=== PATIENT | female | born 1965 | race Caucasian/White ===

== ENCOUNTER 2020-02-15 10:14 | Outpatient (REF) | payer OTHER, SELFPAY ==
[2020-02-15 10:37] LABS: COVID-19 Test Negative (Negative)
== END 2020-02-15 10:15 | disposition home or self-care (01) ==
LOC: HO.LAB 10:14
PROVIDERS: Visit Provider Internal Medicine
DX: Z20.828 Contact with and (suspected) exposure to other viral communicable diseases (principal)
CPT/HCPCS: 87635; C9803

== ENCOUNTER 2020-06-20 | Outpatient (REF) | payer OTHER, SELFPAY ==
--- NOTE | ~2020-06-20 | XR_ITS ---
EXAMINATION: BILATERAL HAND SERIES CLINICAL INFORMATION: Pain in the right hand COMPARISON: None TECHNIQUE: 3 views of the right hand and 3 views of the left hand FINDINGS: Right hand: First carpometacarpal joint Well-corticated rounded ossific density radial to the first carpometacarpal joint. Possible small marginal osteophytes. Remaining bones joints and soft tissues normal. No erosions. No joint space narrowing. Left hand: Bones joints and soft tissues normal. No erosions or joint space narrowing. XR/XR hand LT min 3V IMPRESSION: Right hand: Possible mild arthrosis of the first carpometacarpal joint. Left hand: Normal.
--- NOTE | ~2020-06-20 | XR_ITS ---
EXAMINATION: BILATERAL HAND SERIES CLINICAL INFORMATION: Pain in the right hand COMPARISON: None TECHNIQUE: 3 views of the right hand and 3 views of the left hand FINDINGS: Right hand: First carpometacarpal joint Well-corticated rounded ossific density radial to the first carpometacarpal joint. Possible small marginal osteophytes. Remaining bones joints and soft tissues normal. No erosions. No joint space narrowing. Left hand: Bones joints and soft tissues normal. No erosions or joint space narrowing. XR/XR hand RT min 3V IMPRESSION: Right hand: Possible mild arthrosis of the first carpometacarpal joint. Left hand: Normal.
== END 2020-06-20 00:01 | disposition home or self-care (01) ==
LOC: HO.XRAY
PROVIDERS: Visit Provider Student in an Organized Health Care Education/Training Program
DX: M79.642 Pain in left hand (principal); M79.641 Pain in right hand
CPT/HCPCS: 73130

== ENCOUNTER → 2020-06-20 10:02 | Outpatient (BNVA) | payer OTHER, SELFPAY | PROVIDERS: PCP Family Medicine; Visit Provider Student in an Organized Health Care Education/Training Program ==

== ENCOUNTER 2022-12-10 09:30 | Emergency (ER) | payer OTHER, SELFPAY ==
--- NOTE | 2022-12-10 | ECG_ITS ---
Test Reason : abd pain Blood Pressure : / mmHG Vent. Rate : 078 BPM Atrial Rate : 078 BPM P-R Int : 126 ms QRS Dur : 088 ms QT Int : 380 ms P-R-T Axes : -03 048 026 degrees QTc Int : 433 ms Normal sinus rhythm with sinus arrhythmia Normal ECG No previous ECGs available Referred By: Generic ED Physician Electronically Signed By:MARLEN CHARLES
--- NOTE | ~2022-12-10 | CT_ITS ---
EXAMINATION: CT ABDOMEN AND PELVIS WITH CONTRAST CLINICAL INFORMATION: Severe abdominal pain and vomiting. COMPARISON: None available. TECHNIQUE: Multidetector volumetric images were obtained from the superior aspect of the liver through the pubic symphysis following administration 85 mL of Omnipaque 350 intravenous contrast. Sagittal and coronal reformatted images were obtained on the technologist's workstation. Oral contrast: No This CT examination was performed using dose optimization techniques as appropriate, variously including the following: *Automated exposure control *Adjustment of mA and/or kV according to patient size (this includes techniques or standardized protocols for targeted exams where dose is matched to indication/reason for exam; i.e. extremities or head) *Use of iterative reconstruction technique DLP: 925 mGy-cm FINDINGS: LUNG BASES: The visualized lung bases are unremarkable. LIVER, GALLBLADDER, AND BILIARY TREE: Unremarkable. PANCREAS: Unremarkable. SPLEEN: Unremarkable. ADRENAL GLANDS: Unremarkable. KIDNEYS AND URETERS: The left kidney shows a noncalcified fluid attenuation cysts. The largest cyst is in the left lower pole peripelvic measuring 2.5 cm (image 59, series 5). No nephrolithiasis or hydroureteronephrosis. BLADDER: Unremarkable. GASTROINTESTINAL TRACT: The stomach and proximal small bowel is unremarkable. Moderate abnormal mural thickening is seen in the distal ileum extending to the terminal ileum and ileocecal valve a length of approximately 4 cm. Adjacent infiltrative changes are seen in the mesentery. No associated obstruction, perforation or abscess formation. The appendix is unremarkable except for a coarse calcification near the tip measuring 0.8 cm. The colon and rectum are unremarkable. PERITONEUM: Mild ascites. ABDOMINAL WALL: No significant hernia is appreciated. LYMPH NODES: No lymphadenopathy. VASCULAR: Unremarkable. PELVIC VISCERA: Unremarkable. OSSEOUS STRUCTURES: L5-S1 severe degenerative disc disease, grade 1 anterolisthesis and bilateral spondylolysis. No acute/suspicious abnormality. CT/CT abdomen pelvis w IV con IMPRESSION: 1. Moderate abnormal mural thickening in the distal ileum extending to the terminal ileum and ileocecal valve. Adjacent infiltrative changes are seen in the mesentery. No associated obstruction, perforation or abscess formation. This is most consistent with an infectious/inflammatory ileitis. 2. Mild ascites likely reactive to the distal small bowel findings. 3. Left renal cysts demonstrate benign features not requiring follow-up. 4. L5-S1 severe degenerative disc disease, grade 1 anterolisthesis and bilateral spondylolysis.
[2022-12-10 09:35] VITALS: BP 135/86; BP 142/90; PULSE 83; PULSE 85; RESP 18; TEMP 36.9; O2SAT 98; BMI 37.8
[2022-12-10 09:42] VITALS: PULSE 86
--- NOTE | 2022-12-10 09:48 | ED_ITS ---
HPI - Abdominal Pain General Chief Complaint: Abdominal Pain Stated Complaint: ABD PAIN Time Seen by Provider: 12/10/22 09:47 Source: patient and EMS Mode of arrival: EMS Limitations: no limitations History of Present Illness HPI narrative: 57 yo female with no significant medical history, alcohol use, who presents to the ER for evaluation of diffuse abdominal pains for the last 4 days. She reports the pain comes in waves and is cramping in nature. It tends to be worse at night and she has had trouble sleeping the last few nights. She has been having normal BMs. Today she vomited the small amount of water she drank. She is afraid to eat and drink but did not notice increased pain wtih food. No known sick contacts. No fever, chills, urinary symptoms, chest pain or SOB. MD elicited complaint: abdominal pain Pertinent past history: none Onset (ago): day(s) (4) Pain Consistency: intermittent Location: diffuse Severity: moderate Quality: cramping Exacerbating factors: nothing Relieving factors: nothing Associated symptoms: nausea and vomiting Related Data Previous Rx's Medication Instructions Recorded diclofenac sodium 1 % topical gel 2 g topical QID #100 grams 06/20/20 (Voltaren) amoxicillin 875 mg-potassium 1 tab PO BID #14 tabs 12/10/22 clavulanate 125 mg tablet dicyclomine 20 mg tablet 20 mg PO BID PRN abdominal pain 12/10/22 #14 tabs ondansetron 4 mg disintegrating 4 mg PO Q8H PRN nausea and 12/10/22 tablet vomiting #10 tabs Allergies Allergy/AdvReac Type Severity Reaction Status Date / Time animals Allergy Intermediate dander Uncoded 12/10/22 09:41 Review of Systems Review of Systems Yes all other systems are reviewed and are negative [facility] Past Medical History Medical History (Updated 12/10/22 @ 13:02 by DALI Rodriguez) Denial No active medical problems Surgical History (Updated 06/20/20 @ 10:27 by Arturo Parker MD) No pertinent past surgical history Family History Family History (Updated 06/20/20 @ 10:10 by Danielle Ko CMA) Mother CVD (cardiovascular disease) Daughter Diabetes Father MVA (motor vehicle accident) Social History Social History (Updated 06/20/20 @ 10:27 by Arturo Parker MD) Alcohol intake: current Alcohol intake frequency: a few times a month Smoked in Last 30 Days: No Use of substances other than those prescribed or required for medical reasons: No Advance Directives: No Advance Directives Information Provided: Yes Current occupational status: employed Physical Exam ED Vital Signs: Vital Signs - 24 hr 12/10/22 09:35 12/10/22 09:42 12/10/22 10:42 Temperature 98.4 F 98.2 F Pulse Rate 83 86 73 Respiratory Rate 18 15 Blood Pressure 135/86 109/56 L Pulse Oximetry 98 92 Oxygen Delivery Method Room Air Room Air BMI result Body Mass Index 37.8 Appearance: Alert. Oriented X3. No acute distress. Head: normocephalic, atraumatic. Eyes: Pupils equal, round and reactive to light. ENT: Pharynx normal. No tonsillar swelling or exudate. Neck: Normal inspection. Neck supple. CVS: Normal heart rate and rhythm. Pulses normal. Respiratory: No respiratory distress. Breath sounds normal. Abdomen: Obese, Soft with mild-moderate diffuse tenderness, normal active +BS x4 Skin: Skin warm and dry. Normal skin color. Normal skin turgor. No rashes. Extremities: No lower extremity edema. No joint swelling. Neuro/psych: Oriented X 3. No motor deficit. No sensory deficit. CN II-XII intact. Normal speech and cognition. Medical Decision Making Medical Decision Making [facility] Narrative: 57 yo female presenting with diffuse abdominal pain for the last 4 days, comes in waves. Tender on exam. VS are stable. Labs showing leukocytosis w/ WBC 15.1, also polycythemic vs hemoconcentrate w/ H/H 17/50. LFTs and other labs are normal. CT scan reviewed - showing ileitis. no diarrhea. will plan to start augmentin, bentyl for pain and zofran. she was tolerating PO in the ER comfortable w/ discharge home importance of GI follow up discussed as well as return precautions. stable for d/c. Differential Diagnosis Differential Diagnoses: The differential diagnosis associated with the presentation includes colitis, diverticulitis, acute cholecystitis, appendicitis, gastritis, gastroenteritis, pancreatitis, dehydration, electrolyte abnormality Admission/Observation Consideration of admission/observation: Escalation of care including admission/observation considered abd pain w/ leukocytosis. considered admit. pain and symptoms improved w/ meds. comfortable d/c home Lab Data [facility] Lab Attestation statement: I reviewed the patient's lab results. 12/10/22 10:06 12/10/22 10:06 Labs: Lab Results 12/10/22 12/10/22 12/10/22 Range/Units 10:06 10:06 11:44 WBC 15.1 H (4.8-10.8) X10*3/uL RBC 5.52 H (4.20-5.50) X10*6/uL Hgb 17.3 H (12.0-16.0) g/dl Hct 50.7 H (37.0-47.0) % MCV 91.8 (80.0-98.0) fL MCH 31.3 (27.0-33.0) pg MCHC 34.1 (31.0-35.0) g/dl RDW 12.1 (11.0-16.0) % Plt Count 266 (160-400) X10*3/uL MPV 9.7 (9.4-12.3) fL Immature Gran % (Auto) 0.5 H (0.0-0.4) % Neut % (Auto) 88.4 H (45-73) % Lymph % (Auto) 5.5 L (20-40) % [place] % (Auto) 4.7 (2-11) % Eos % (Auto) 0.5 (0-4) % Baso % (Auto) 0.4 (0-2) % Lymph # (Auto) 0.8 L (1.2-4.9) X10*3/uL [place] # (Auto) 0.7 (0.1-1.2) X10*3/uL Eos # (Auto) 0.1 (0.0-0.4) X10*3/uL Baso # (Auto) 0.1 (0.0-0.2) X10*3/uL Abs Immat Gran (auto) 0.07 H (0.00-0.03) X10*3/uL Absolute Neuts (auto) 13.4 H (2.0-8.3) x10*3/uL Absolute Nucleated RBC 0.000 (0.0-0.012) X10*3/uL Nucleated RBC % (auto) 0.0 (0.0-0.2) /100WBC Sodium 138 (135-145) mmol/L Potassium 4.3 (3.3-5.1) mmol/L Chloride 103 (96-108) mmol/L Carbon Dioxide 26 (22-29) mmol/L Anion Gap 13 (12-20) BUN 14 (9-16) mg/dL Creatinine 0.81 (0.5-1.4) mg/dL Estim Creat Clear Calc 95.5 Estimated GFR > 60 Random Glucose 127 H (60-115) mg/dL Calcium 10.0 (8.4-10.2) mg/dL Magnesium 2.1 (1.6-2.6) mg/dL Total Bilirubin 0.7 (0.0-1.0) mg/dL Direct Bilirubin 0.3 (0.0-0.5) mg/dL AST 15 (5-31) U/L ALT 20 (0-31) U/L Alkaline Phosphatase 78 (39-117) U/L Total Protein 7.3 (6.5-8.0) g/dL Albumin 4.1 (3.5-5.0) g/dL Lipase 11 (8-78) U/L Urine Color Yellow Urine Appearance Clear Urine pH 5.5 (5.0-9.0) Ur Specific [place] >= 1.030 H (1.005-1.025) Urine Protein Negative (Neg-Trace) mg/dL Urine Glucose (UA) Negative (Negative) mg/dL Urine Ketones 15 (Negative) mg/dL Urine Blood Negative (Negative) Urine Nitrite Negative (Negative) Ur Leukocyte Esterase Negative (Negative) Independent Interpretation I performed an independent interpretation of an: CT Scan Interpretation: no air fluid levels to suggest obstruction, inflammation in small bowel seen, agree w/ radiology read Radiology Impression Discussion of test interpretation with radiology: I have reviewed the radiologist's reading. Radiologist Impression: EXAMINATION: CT ABDOMEN AND PELVIS WITH CONTRAST? CLINICAL INFORMATION: Severe abdominal pain and vomiting.? COMPARISON: None available. FINDINGS: LUNG BASES: The visualized lung bases are unremarkable.? LIVER, GALLBLADDER, AND BILIARY TREE: Unremarkable. PANCREAS: Unremarkable.? SPLEEN: Unremarkable.? ADRENAL GLANDS: Unremarkable.? KIDNEYS AND URETERS: The left kidney shows a noncalcified fluid attenuation cysts. The largest cyst is in the left lower pole peripelvic measuring 2.5 cm (image 59, series 5). No nephrolithiasis or hydroureteronephrosis. BLADDER: Unremarkable.? GASTROINTESTINAL TRACT: The stomach and proximal small bowel is unremarkable. Moderate abnormal mural thickening is seen in the distal ileum extending to the terminal ileum and ileocecal valve a length of approximately 4 cm. Adjacent infiltrative changes are seen in the mesentery. No associated obstruction, perforation or abscess formation. The appendix is unremarkable except for a coarse calcification near the tip measuring 0.8 cm. The colon and rectum are unremarkable. PERITONEUM: Mild ascites. ABDOMINAL WALL: No significant hernia is appreciated.? LYMPH NODES: No lymphadenopathy. VASCULAR: Unremarkable. PELVIC VISCERA: Unremarkable.? OSSEOUS STRUCTURES: L5-S1 severe degenerative disc disease, grade 1 anterolisthesis and bilateral spondylolysis. No acute/suspicious abnormality.? CT/CT abdomen pelvis w IV con IMPRESSION: 1.? Moderate abnormal mural thickening in the distal ileum extending to the terminal ileum and ileocecal valve. Adjacent infiltrative changes are seen in the mesentery. No associated obstruction, perforation or abscess formation. This is most consistent with an infectious/inflammatory ileitis. 2.? Mild ascites likely reactive to the distal small bowel findings. 3.? Left renal cysts demonstrate benign features not requiring follow-up. 4.? L5-S1 severe degenerative disc disease, grade 1 anterolisthesis and bilateral spondylolysis. Independent Historian Clinical information obtained from an independent historian. History obtained from or confirmed by: EMS Prescription Management I considered prescription management with: Pain Medication and Antibiotic Social Determinants Patient?s care significantly limited by Social Determinants of Health including: Other Social Determinant of Health (no PCP, no medical follow up) Medications Administered Discontinued Medications Generic Name Dose Route Start Last Admin Trade Name Freq PRN Reason Stop Dose Admin Sodium Chloride 1,000 mls @ 999 mls/hr 12/10/22 10:00 12/10/22 11:38 Ns IVCONT 12/10/22 11:00 Infused .Q1H1M KINGS Infusion Sodium Chloride 1,000 mls @ 999 mls/hr 12/10/22 11:00 12/10/22 13:15 Ns IVCONT 12/10/22 12:00 Infused .Q1H1M KINGS Infusion Iohexol 100 ml 12/10/22 11:33 12/10/22 11:33 Iohexol 350 Mg/Ml 100 Ml Infus..Btl IV 12/10/22 11:34 85 ml ONCE ONE Administration Morphine Sulfate 4 mg 12/10/22 09:52 12/10/22 10:00 Morphine Sulfate 4 Mg/Ml Cartridge IVPUSH 12/10/22 09:53 4 mg ONCE ONE Administration Protocol Ondansetron HCl 4 mg 12/10/22 09:52 12/10/22 10:00 Ondansetron Hcl 4 Mg/2 Ml Vial IVPUSH 12/10/22 09:53 4 mg ONCE ONE Administration Critical Care Time Critical Care Time Critical Care Time: No Discharge Plan Discharge Clinical Impression: Ileitis Patient Disposition: Home, Self-Care Instructions: Enteritis (ED) Additional Instructions: Your CT scan today showed inflammation in a part of your small bowel. Take the prescribed antibiotics as directed, complete the entire course and do not miss any doses Stick to a bland diet while you are not feeling well Make sure you are drinking plenty of fluids Recommend following up with GI for further evaluation and treatment - name and number below, call for an appointment If you develop new or worsening symptoms call 911 or come back to the ER for further evaluation. Prescriptions: New amoxicillin-pot clavulanate 875-125 mg tablet 1 tab PO BID Qty: 14 0RF ondansetron 4 mg tablet,disintegrating 4 mg PO Q8H PRN (Reason: nausea and vomiting) Qty: 10 0RF dicyclomine 20 mg tablet 20 mg PO BID PRN (Reason: abdominal pain) Qty: 14 0RF No Action diclofenac sodium [Voltaren] 1 % gel 2 g topical QID Qty: 100 3RF Rx Instructions: Apply 1 g to bilateral CMC joints twice daily as needed. Referrals: [facility] [place] [facility] [Provider Group] (ileitis)
--- NOTE | 2022-12-10 09:49 | PC.NURSE ---
pt a&ox3. respirations even and unlabored. pt abdomen soft but tender to touch in all 4 quadrants. pt reports abdominal pain since Wednesday that is constant. pt reports nausea since Wednesday. denies chest pain and diarrhea. pt reports vomiting prior to coming to the ED. pt reports being unable to eat full meals. EMS placed a 20 in the right AC. normal sinus on tele.
[2022-12-10] MEDS: Morphine Sulfate 4 MG/ML CARTRIDGE IVPUSH (10:00)
[2022-12-10] MEDS: ondansetron HCL 4 MG/2 ML VIAL IVPUSH (10:00)
[2022-12-10] MEDS: 0.9 % Sodium Chloride 1,000 ML 999 ML IVCONT ×2 (10:01→11:43)
[2022-12-10 10:14] LABS: Basophils Absolute Auto 0.1 X10*3/uL (0.0-0.2); Basophils Percent Auto 0.4 % (0-2); Eosinophils Absolute Auto 0.1 X10*3/uL (0.0-0.4); Eosinophils Percent Auto 0.5 % (0-4); Hematocrit 50.7 % (37.0-47.0); Hemoglobin 17.3 g/dl (12.0-16.0); Imm Gran Abs Auto 0.07 X10*3/uL (0.00-0.03); Imm Gran Pct Auto 0.5 % (0.0-0.4); Lymphocytes Absolute Auto 0.8 X10*3/uL (1.2-4.9); Lymphocytes Percent Auto 5.5 % (20-40); MANUAL DIFF FLAG NO; Mean Corpuscular HGB Conc 34.1 g/dl (31.0-35.0); Mean Corpuscular Hemoglobin 31.3 pg (27.0-33.0); Mean Corpuscular Volume 91.8 fL (80.0-98.0); Mean Platelet Volume 9.7 fL (9.4-12.3); Monocytes Absolute Auto 0.7 X10*3/uL (0.1-1.2); Monocytes Percent Auto 4.7 % (2-11); Neutrophils Absolute Auto 13.4 x10*3/uL (2.0-8.3); Neutrophils Percent Auto 88.4 % (45-73); Platelet Count 266 X10*3/uL (160-400); Red Blood Count 5.52 X10*6/uL (4.20-5.50); Red Cell Distribution Width 12.1 % (11.0-16.0); White Blood Count 15.1 X10*3/uL (4.8-10.8)
--- NOTE | 2022-12-10 10:40 | PC.NURSE ---
pt right ac line infiltrated. pt reports no pain at site. line discontinued. 20 placed in left forearm.
[2022-12-10 10:42] VITALS: BP 109/56; PULSE 73; RESP 15; TEMP 36.8; O2SAT 92
[2022-12-10 10:44] LABS: Alanine Aminotransferase 20 U/L (0-31); Albumin Level 4.1 g/dL (3.5-5.0); Alkaline Phosphatase 78 U/L (39-117); Anion Gap 13 (12-20); Aspartate Amino Transferase 15 U/L (5-31); Bilirubin Direct 0.3 mg/dL (0.0-0.5); Bilirubin Total 0.7 mg/dL (0.0-1.0); Blood Urea Nitrogen 14 mg/dL (9-16); Carbon Dioxide 26 mmol/L (22-29); Chloride 103 mmol/L (96-108); Creatinine Clr Calc Pharmacy 95.5; Estimated Glomerular Filt Rate > 60; Glucose Random 127 mg/dL (60-115); Lipase 11 U/L (8-78); Magnesium 2.1 mg/dL (1.6-2.6); Potassium 4.3 mmol/L (3.3-5.1); Sodium 138 mmol/L (135-145); Total Protein 7.3 g/dL (6.5-8.0)
[2022-12-10] MEDS: iohexoL 350 MG/ML 100 ML INFUS..BTL IV (11:33)
[2022-12-10 11:55] LABS: Appearance Urine Clear; Color Urine Yellow; Glucose Urine UA Negative (Negative); Leukocyte Esterase Urine Negative (Negative); Nitrite Urine Negative (Negative); PH 5.5 (5.0-9.0); Specific Gravity - Urine >= 1.030 (1.005-1.025); Urine Blood Negative (Negative); Urine Ketones 15 mg/dL (Negative); Urine Protein Negative (Neg-Trace)
== END 2022-12-10 14:19 | disposition home or self-care (01) ==
PROVIDERS: Physician Assistant; Emergency Provider Emergency Medicine
DX: K52.9 Noninfective gastroenteritis and colitis, unspecified (principal); R10.9 Unspecified abdominal pain
CPT/HCPCS: 36415; 74177; 80048; 80076; 81003; 83690; 83735; 85025; 93005; 96361; 96374; 96375; 99284; 99285; J2270; J2405; Q9967

== ENCOUNTER 2022-12-18 16:04 | Outpatient (REF) | payer OTHER, SELFPAY ==
[2022-12-18 17:40] LABS: Appearance Urine Clear; Color Urine Yellow; Glucose Urine UA Negative (Negative); Leukocyte Esterase Urine Negative (Negative); Nitrite Urine Negative (Negative); PH 5.5 (5.0-9.0); Specific Gravity - Urine 1.015 (1.005-1.025); Urine Blood Negative (Negative); Urine Ketones Negative (Negative); Urine Protein Negative (Neg-Trace)
== END 2022-12-18 16:05 | disposition home or self-care (01) ==
LOC: HO.LAB 16:04
PROVIDERS: Visit Provider Surgery
DX: K52.9 Noninfective gastroenteritis and colitis, unspecified (principal)
CPT/HCPCS: 81003

== ENCOUNTER 2024-08-30 13:02 | Outpatient (AMB) | payer OTHER, SELFPAY ==
--- NOTE | 2024-08-30 13:13 | MHC.PC.OV ---
Vital Signs 08/30/24 13:19 Height 5 ft 5 in Weight 236 lb 6 oz BMI 39.3 BP 134/76 Blood Pressure Location Lt brachial Position Sitting Respiration 12 Pulse 76 Pulse Source Pulse Oximeter Temp 97.2 F Temp Source Oral Pulse Oximetry (%) 97 Oxygen Delivery Method Room Air Intake Visit Reasons: est care Intake Note: New patient to establish care Die Engraver Required: No Allergies animals Allergy (Intermediate, Uncoded 08/30/24 13:30) dander Medication List - Last Reconciled 08/30/24 by ALTA Trimble No Known Home Meds Tobacco use date assessed: 08/30/24 Dental Screening Dental Screen Date: 08/30/24 Did you have a dental visit in the last 12 months?: No Did you have a dental problem in the last 6 months where you did not have access to dental care?: No Was dental information given to patient?: No HPI HPI Comments History of Present Illness Details 59 y/o F with left kidney shows a noncalcified fluid attenuation cysts. 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 Ordered today Pap last one done several years ago, hx of abnormal Specialists Rheum - no longer follows Derm History of Present Illness - The patient is a 59-year-old female presenting to establish care. & for CPE - Infectious and inflammatory ileitis occurred in 2022, identified as viral. - Left kidney cysts are noncalcified, fluid-filled, and benign. No further fu required. - Chronic lumbar degenerative disc disease reported, severe at L5 and S1. Offers no complaints, - Obesity noted with a BMI of 39. Family History - No family history of colon cancer in first-degree relatives. - Daughter has melanoma, now on chemotherapy. - Daughter with type 1 diabetes experienced organ failure from flu strand B. - No personal or family history of Crohn's disease or ulcerative colitis. 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 - Has three daughters, one with melanoma, one with type 1 diabetes, and one healthy. - Reports reluctance towards medical visits due to familiarity with medical personnel and previous medical experiences. - Describes self as previously a 'sun goddess' with frequent sun exposure. Health Maintenance - Cologuard screening planned, patient previously received but did not complete. - Last mammogram completed in 2019 with a recommendation for possible update. - No history of colonoscopy, discussed potential eligibility for Cologuard test. - No history of bone density screening; discussed as potential concurrent test with mammogram. - Tetanus vaccination was last administered in 2018. Review of Systems - Constitutional: Denies current medication use. -Optho: Patient reports chronic bloodshot eye L side, with loose skin, affecting L Upper lid, causing irritation. - Ears: Patient reports boyfriend thinks hearing is declining due to preference for louder TV volume. - Gastrointestinal: Reports previous iliitis, benign kidney cysts. - Neuromusculoskeletal: Denies sciatica currently, reports arthritis in thumbs. - Dermatological: No current concerns, but significant sun exposure history. - Gynecological: Menopause began approximately 5 years ago. Last Pap smear approximately 20 years ago with history of precancerous changes treated surgically. - Psychosocial: Reports potential hearing concerns according to partner. Physical Exam General: Well developed, well nourished, in no acute distress. Appears stated age. Head: Normocephalic, atraumatic. Eyes: Pupils are equal, round and reactive to light and accommodation. Conjunctivae are clear. Vision grossly normal. Ears: TMs clear AU, EACS WNL. Nose: Patent, without discharge. Neck: Supple, no adenopathy or thyromegaly. No pain or tenderness noted. Breast: Edu on SBE. Last mammogram in 2019. Lungs: Clear to auscultation bilaterally. No rales, rhonchi or wheeze noted. Good air flow in all dobbins. Heart: Regular rate and rhythm. No murmurs, click, rubs or gallops are noted. Abdomen: Bowel sounds present in all quadrants. The abdomen is soft, nontender, with no masses or organomegaly noted. No hernias are noted. : Deferred. 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 Pulses: Peripheral pulses are equal and palpable bilaterally. Extremities: No clubbing, cyanosis nor edema is noted. Neurologic: Gait and station normal. Cranial Nerves 2-12 intact. Motor strength grossly symmetrical and intact. No sensory loss. Balance normal. Skin: No rashes, ulcers, or lesions noted. Turgor is good. Skin color is good. Hair and nails are without abnormalities. Psych: Normal eye contact, affect and mood appropriate, and normal interactions. Patient is alert and appropriate to context. Discussion Notes I discussed with the patient the importance of health maintenance, including mammogram and colon cancer screenings. We covered the Cologuard test as a noninvasive option, highlighting results' validity for three years. I encouraged routine bone density scanning given menopausal status and advised checking familial melanoma risk with dermatology. The patient is informed of her option to undergo these tests within the next year. I reviewed the details of potential screenings, outlining processing and follow-up procedures while addressing concerns about invasive testing. Consent was documented for Cologuard involvement. Assessment and Plan 1. Infectious and inflammatory ileitis - Viral, resolved; no current treatment. 2. Noncalcified fluid attenuation cysts in the left kidney - Benign; no further imaging needed. 3. Severe degenerative disc disease at L5 and S1 - Conservative management, no complaints. 4. Obesity - Advised diet and weight loss. 5. Health Maintenance - Screenings recommended: Cologuard, mammogram, bone density. Refer to Derm and WATER SOFTENER SERVICER AND INSTALLER Patient Instructions - Review and discuss results from Cologuard test once received. - Schedule a mammogram within the next year. - Consider lifestyle changes to address weight management. - Consult w/ Derm and WATER SOFTENER SERVICER AND INSTALLER - Follow guidelines for routine health maintenance. - Routine labs - RTO 1 year CPE, sooner PRN Consent Patient was informed and verbally consented to the use of an ambient scribe for clinic note documentation during this visit. An additional 18 minutes was spent addressing the problem(s) noted at todays visit. This includes time spent before the visit reviewing the chart, time spent during the visit, and time spent after the visit on documentation reviewing laboratory results, diagnostic imaging, medications, performing a medically necessary evaluation, counseling on diagnoses, care coordination, ordering appropriate tests, ordering appropriate medications, review of tests performed by other providers, reporting test results with the patient, communication with other healthcare providers. [facility] Medical History (Updated 08/30/24 @ 14:16 by Misti Gtz, [facility]) Arthritis Enteritis Hx of mammogram (~2019) No active medical problems Surgical History (Updated 06/20/20 @ 10:27 by Arturo Parker MD) No pertinent past surgical history Family History (Updated 08/30/24 @ 13:23 by Anthony Cooper MA) Mother CVD (cardiovascular disease) HTN (hypertension) Daughter Diabetes Father MVA (motor vehicle accident) Social History (Updated 08/30/24 @ 13:14 by Anthony Cooper MA) Housing: House Alcohol intake: current Alcohol intake frequency: a few times a month Patient Tobacco Use Status: Never used Tobacco e-Cigarette/Vaping Use: Never Used Second Hand Smoke Exposure: No Current occupational status: employed 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 1. Little interest or pleasure in doing things: not at all 2. Feeling down, depressed, or hopeless: not at all 3. Trouble falling or staying asleep, or sleeping too much: not at all 4. Feeling tired or having little energy: not at all 5. Poor appetite or overeating: not at all 6. Feeling bad about yourself - or that you are a failure or have let yourself or your family down: not at all 7. Trouble concentrating on things, such as reading the newspaper or watching television: not at all 8. Moving or speaking so slowly that other people could have noticed. Or the opposite - being so fidgety or restless that you have been moving around a lot more than usual: not at all 9. Thoughts that you would be better off or of hurting yourself in some way: not at all Total score: 0 Depression Screening Interpretation: Negative Depression Screening Done: Yes 56065 - PHQ-9 Billing: Yes Source: Developed by Drs. Tutu Rasmussen, Rose Guido, Lars Reeves and colleagues, with an educational gita from [employer]. Thrive Questionnaire Date Thrive assessed: 08/30/24 I am a: Patient What is your living situation today?: I have a steady place to live Within the past 12 months, did the food you bought not last and you didn't have the money to get more?: Never true Within the past 12 months, did you worry whether your food would run out before you got money to buy more?: Never true Do you have trouble paying for medicines?: No Do you have trouble getting transportation to medical appointments?: No Do you have trouble paying your heating and electricity bill?: No Do you have trouble taking care of your child, family member or friend?: No Do you have trouble with day-to-day activities such as bathing, preparing meals, shopping, managing finances, etc.?: No Are you currently unemployed and looking for a job?: No Are you interested in more education?: No Please select the resources that you would like help with: None Currently or been in a relationship where the following occur: I choose not to answer THRIVE Score: 0 AUDIT C Alcohol Use Questionnaire (AUDIT-C) 1. How often do you have a drink containing alcohol?: 2-3 times a week 2. How many drinks containing alcohol do you have on a typical day when you are drinking?: 1 or 2 3. How often do you have six or more drinks on one occasion?: Never Total Score: 3 Score Reviewed/Action Taken: Yes RACHEL-7 AMB Questionnaire RACHEL-7 Date RACHEL - 7 assessed: 08/30/24 Feeling nervous, anxious, or on edge: 0 = Not at all Not being able to stop or control worryin = Not at all Worrying too much about different things: 0 = Not at all Trouble relaxin = Not at all Being so restless that it is hard to sit still: 0 = Not at all Becoming easily annoyed or irritable: 0 = Not at all Feeling afraid as if something awful might happen: 0 = Not at all Total RACHEL-7 score (0-4 normal; 5-9 mild; 10-14 moderate; 15-21 severe): 0 Source: Developed by Drs. Tutu Rasmussen, Rose Guido, Lars Reeves and colleagues, with an educational giat from [employer]. RACHEL-7 Assessment Billing RACHEL-7 Assessment Tool: RACHEL-7 Assessment 09341 Physical exam (Primary Care) Vital Signs: Last Vital Signs Temp 97.2 F 08/30/24 13:19 Pulse 76 08/30/24 13:19 Resp 12 08/30/24 13:19 BP 134/76 08/30/24 13:19 Pulse Ox 97 08/30/24 13:19 Oxygen Delivery Method Room Air 08/30/24 13:19 BMI result Body Mass Index 39.3 BMI Assessment/Plan discussion: High BMI High, discussed plan: lifestyle Tobacco/Smoking Status: Tobacco use Status Tobacco use date assessed 08/30/24 08/30/24 13:20 Patient Tobacco Use Status Never used Tobacco 08/30/24 13:20 e-Cigarette/Vaping Use Never Used 08/30/24 13:20 PHQ-9: PHQ-9 Score PHQ-9: Total score 0 08/30/24 13:21 Depression Screening Interpretation: Negative Thrive Assessment: Date of Thrive Assessment Date Thrive assessed 08/30/24 08/30/24 13:20 Currently or been in a relationship where the following occur: I choose not to answer Coding Level of Care Code New Pt Level 2 (92593) New Pt Prev Care 40-64y(01212) Diagnoses Encounter for general adult medical examination with abnormal findings Z00.01 Obesity (BMI 30-39.9) E66.9 Menopause Z78.0 Family history of skin cancer Z80.8 Screening for skin cancer Z12.83 Hx of abnormal cervical Pap smear Z87.42 Laboratory exam ordered as part of routine general medical examination Z00.00 Benign cyst of left kidney N28.1 Encounter to establish care Z76.89 Spondylosis of lumbar region without myelopathy or radiculopathy M47.816 Spinal osteoarthritis complication: without myelopathy or radiculopathy Primary osteoarthritis of both hands M19.041; M19.042 Osteoarthritis type: primary Additional Codes RACHEL-7 Assessment Billing - RACHEL-7 Assessment Tool: RACHEL-7 Assessment 33810 ([id number]) PHQ-9 - 29967 - PHQ-9 Billing: Yes ([id number]) Assessment & Plan Assessment & Plan (1) Encounter for general adult medical examination with abnormal findings: Onset Date: ~08/2024 Code(s): Z00.01 - Encounter for general adult medical examination with abnormal findings Category: Medical (2) Obesity (BMI 30-39.9): Code(s): E66.9 - Obesity, unspecified Category: Medical (3) Menopause: Code(s): Z78.0 - Asymptomatic menopausal state Category: Medical (4) Family history of skin cancer: Comment: Dtr age 40 Dx with melanoma Code(s): Z80.8 - Family history of malignant neoplasm of other organs or systems Category: Medical (5) Screening for skin cancer: Code(s): Z12.83 - Encounter for screening for malignant neoplasm of skin Category: Medical (6) Hx of abnormal cervical Pap smear: Code(s): Z87.42 - Personal history of other diseases of the female genital tract Category: Medical (7) Laboratory exam ordered as part of routine general medical examination: Code(s): Z00.00 - Encounter for general adult medical examination without abnormal findings Category: Medical (8) Benign cyst of left kidney: Code(s): N28.1 - Cyst of kidney, acquired Category: Medical (9) Encounter to establish care: Code(s): Z76.89 - Persons encountering health services in other specified circumstances (10) Degenerative joint disease (DJD) of lumbar spine: Code(s): M47.816 - Spondylosis without myelopathy or radiculopathy, lumbar region Category: Medical Qualifiers: Spinal osteoarthritis complication: without myelopathy or radiculopathy Qualified Code(s): M47.816 - Spondylosis without myelopathy or radiculopathy, lumbar region (11) Osteoarthritis of hands, bilateral: Code(s): M19.041 - Primary osteoarthritis, right hand; M19.042 - Primary osteoarthritis, left hand Category: Medical Qualifiers: Osteoarthritis type: primary Qualified Code(s): M19.041 - Primary osteoarthritis, right hand; M19.042 - Primary osteoarthritis, left hand Plan . Orders: Orders Comprehensive Met. Panel Today Z00.00 - Encounter for general adult medical examination without abnormal findings Hemoglobin A1c Today Z00.00 - Encounter for general adult medical examination without abnormal findings Microalbumin, Random (w Creat) Today Z00.00 - Encounter for general adult medical examination without abnormal findings Vitamin B12 and Folate Today Z00.00 - Encounter for general adult medical examination without abnormal findings Vitamin D 25-OH Total Today Z00.00 - Encounter for general adult medical examination without abnormal findings MM tomosynthesis screening BI Today Z12.31 - Encounter for screening mammogram for malignant neoplasm of breast XR DEXA axial skeleton Today Z13.820 - Encounter for screening for osteoporosis, Z78.0 - Asymptomatic menopausal state Lipid Panel Today Z00.00 - Encounter for general adult medical examination without abnormal findings TSH reflex Free T4 Today Z00.00 - Encounter for general adult medical examination without abnormal findings Referrals Cologuard Test Z12.11 - Encounter for screening for malignant neoplasm of colon, Z12.12 - Encounter for screening for malignant neoplasm of rectum Dermatology Referral Z12.83 - Encounter for screening for malignant neoplasm of skin, Z80.8 - Family history of malignant neoplasm of other organs or systems ADMITTING OFFICE ESCORT Referral Z12.4 - Encounter for screening for malignant neoplasm of cervix, Z87.42 - Personal history of other diseases of the female genital tract Patient Instructions: Walk-In Care (Urgent Care): We Make it Easy Walk-in for urgent medical issues such as: ? Seasonal Allergies ? Insect Bites ? Cough ? Diarrhea ? Acute Asthma Attacks ? Back, Knee or Joint Pain ? Ear Infection ? Fever without a Rash ? Headaches ? Nausea ? [place] [facility], Rash or Skin Irritation ? Sore Throat ? Sports Physicals ? Vomiting Most insurances are accepted. Patients do not need to be part of the [facility] to seek care at the walk-in clinic. Locations [facility] , [place] [address] ? [phone] [facility] Walk-In Care in [place] provides services to ages 18 and over. Open Wednesday-Wednesday: 8 a.m. to 5 p.m. and Wednesday: 9 a.m. to 3 p.m.* *Hours may vary due to staffing availability. To confirm Walk-In Care hours in [place], please call [phone]. [address] [place] [address] ? [phone] [facility] Walk-In Care in [place] provides services to ages 12 and over. Open Wednesday-Wednesday: 8 a.m. to 5 p.m. Hours may vary due to staffing availability. To confirm Walk-In Care hours in [place], please call [phone]. LABORATORY SERVICES: [facility] ? Primary Location [address] [place] [address] Wednesday through Wednesday 6:00 AM ? 5:00 PM Wednesday 7:00 AM ? 11:00 AM* [phone] The [facility] is centrally located near the front entrance of the [facility] for easy outpatient access. Convenient parking is provided for outpatients. *Hours may vary due to staffing availability. To confirm Laboratory hours for any location, please call [phone]. Offsite Location For your convenience, we offer offsite laboratory draw stations at the following locations: [address] [place] [address] ? [facility] [address] [facility], [address] Wednesday through Wednesday 7:30 AM ? 1:00 PM* [phone] *Hours may vary due to staffing availability. To confirm Laboratory hours for any location, please call [phone]. [place] ? [address] Wednesday through Wednesday 6:00 AM ? 3:30 PM* Wednesday 6:30 AM ? 3 PM* [phone] *Hours may vary due to staffing availability. To confirm Laboratory hours for any location, please call [phone] [place] [address] Wednesday through Wednesday 7:30 AM ? 4:00 PM* [phone] *Hours may vary due to staffing availability. To confirm Laboratory hours for any location, please call [phone] [place] [address] Wednesday through 9:00 AM ? 4:00 PM* *Hours may vary due to staffing availability. To confirm Laboratory hours for any location, please call [phone]. Appointments are not necessary. Walk-ins are welcome. Like all the departments throughout the [facility], our Lab undergoes frequent reviews to ensure the quality and accuracy of test results, and our staff takes special pride in its status as a nationally accredited facility. Patient Portal: ONE PATIENT. ONE RECORD. BETTER CARE. [facility] has a fully integrated, cutting-edge mobile electronic health information system that has revolutionized the way we care for our patients and manage our organization. This system improves communication and coordination enabling us to provide safe, higher-quality care, and an overall positive experience for staff and patients. Our first priority, as always, is to deliver the highest quality care possible. The system is running in the background supporting that priority. This portal is for all [facility] services and practices. If you are experiencing any technical difficulties with enrolling or logging into the Patient Portal please complete the [facility] Patient Portal Technical Support Form. [facility] now offers a new secure on-line interactive tool for patients to review their health information ? ?Patient Portal. This interactive web portal will enable patients and their families to take an active role in their care by providing easy, secure access to their health information via the internet. The Patient Portal provides patients with instant access to their health information, including laboratory results, medications, allergies, demographic information, visit history, and more. In addition to managing their own care, parents and health care proxies with authorized consent will appreciate the ability to access the records of those individuals for whom they provide care. Please note: if you wish to gain access (Proxy) to another patient?s portal, you will be required to come to the Medical Records Department in person at [facility]. Both the patient giving proxy access and the proxy will need to provide photo identification and complete the appropriate authorization. The Patient Portal also allows track their appointments online. The [facility] Patient Portal also saves patients time by allowing them to submit updates to their demographic and contact information prior to their visits. Portal email notifications will also alert patients to any new activity on their portal, such as test results and new appointments. In order to initially enroll in the [facility] Patient Portal, you will need to enter some required information including the following: your [facility] Medical Record number your personal home email address name date of Please note: In order to enroll in the [facility] Patient Portal, we need to have your email address on file in your electronic medical record. ?The email address needs to be specific for one person (yourself) in order for your Portal enrollment to be successful. ?You can update your email address in person with our Registration staff when you are registering for a hospital visit. ?Otherwise, you will need to come to the Health Information Management (Medical Records) Department at [facility]. ?We are open from Wednesday ? Wednesday from 7:30 a.m. ? 4:30 p.m. ?You will be required to present a photo id. Once you have successfully enrolled in the Patient Portal, you will receive a one-time user id and password for the Portal, sent to your email address. ?This will allow you to log into the Patient Portal within 99 hrs and reset your own logon id and password, and define personal security questions. ?Once your permanent login and password have been set, you can log into the [facility] Patient Portal at any time via the blue button above or from the Portal Logon button on any page of the [facility] website. [facility] encourage all of our patients to enroll in Patient Portal as it presents a valuable opportunity for patients and their families to actively participate in their care and stay healthy Welcome to [facility]. ?We look forward to working with you. Health screenings for women You should visit your health care provider from time to time, even if you are healthy. The purpose of these visits is to: Screen for medical issues Assess your risk for future medical problems Encourage a healthy lifestyle Update vaccinations and other preventive care services Help you get to know your provider in case of an illness Information Even if you feel fine, you should still see your provider for regular checkups. These visits can help you avoid problems in the future. For example, the only way to find out if you have high blood pressure is to have it checked regularly. High blood sugar and high cholesterol levels also may not have any symptoms in the early stages. A simple blood test can check for these conditions. There are specific times when you should see your provider or receive specific health screenings. The [place] Preventive Services Task Force publishes a list of recommended screenings. Below are screening guidelines for women ages 18 to 39. BLOOD PRESSURE SCREENING Your blood pressure should be checked at least once every 3 to 5 years if: Your blood pressure is in the normal range (top number less than 120 mm Hg and bottom number less than 80 mm Hg) You don't have risk factors for high blood pressure Ask your provider if you need your blood pressure checked more often if: The top number is 120 to 129 mm Hg or the bottom number is 70 to 79 mm Hg You have diabetes, heart disease, kidney problems, are overweight, or have certain other health conditions You have a first-degree relative with high blood pressure You are Black You had high blood pressure during a If the top number is 130 mm Hg or greater or the bottom number is 80 mm Hg or greater, this is considered stage 1 hypertension. Schedule an appointment with your provider to learn how you can reduce your blood pressure. Watch for blood pressure screenings in your area. Ask your provider if you can stop in to have your blood pressure checked. BREAST CANCER SCREENING Experts do not agree about the benefits of breast self-exams in finding breast cancer or saving lives. Talk to your provider about what is best for you. A screening mammogram is not recommended for most women under age 40. Your provider may discuss and recommend mammograms, MRI scans, or ultrasounds if you have an increased risk for breast cancer, such as: A mother or sister who had breast cancer at a young age (most often starting screening earlier than the age the close relative was diagnosed) You carry a high-risk genetic marker CERVICAL CANCER SCREENING Cervical cancer screening should start at age 21 years unless your provider advises otherwise. After the first test: Women ages 21 through 29 should have a Pap test every 3 years. Exoprts do not agree on whether HPV testing is recommended for this age group. Women ages 30 through 65 should be screened with either a Pap test every 3 years or the HPV test every 5 years or both tests every 5 years (called cotesting ). Women who have been treated for precancer (cervical dysplasia) should continue to have Pap tests for 20 years after treatment or until age 65, whichever is longer. If you have had your uterus and cervix removed (total hysterectomy), and you have not been diagnosed with cervical cancer or precancer (high grade cervical neoplasia), you do not need cervical cancer screening. CHOLESTEROL SCREENING Cholesterol screening should begin at: Age 45 for women with no known risk factors for coronary heart disease Age 20 for women with known risk factors for coronary heart disease Repeat cholesterol screening should take place: Every 5 years for women with normal cholesterol levels More often if changes occur in lifestyle (including weight gain and diet) More often if you have diabetes, heart disease, kidney problems, or certain other conditions DIABETES SCREENING You should be screened for diabetes starting at age 35 and then repeated every 3 years if you have no risk factors for diabetes. Screening may need to start earlier and be repeated more often if you have other risk factors for diabetes, such as: You have a first degree relative with diabetes. You are overweight or have obesity. You have high blood pressure, prediabetes, or a history of heart disease. Screening for diabetes should be done if you are planning to become and you are overweight and have other risk factors such as high blood pressure. DENTAL EXAM Go to the dentist once or twice every year for an exam and cleaning. Your dentist will evaluate if you need more frequent visits. EYE EXAM Have an eye exam every 5 to 10 years before age 40. If you have vision problems, have an eye exam every 2 years or more often if recommended by your provider. You should have an eye exam that includes an examination of your retina (back of your eye) at least every year if you have diabetes. IMMUNIZATIONS Commonly needed vaccines include: Flu shot: get one every year. COVID-19 vaccine: ask your provider what is best for you. Tetanus-diphtheria and acellular pertussis (Tdap) vaccine: have one at or after age 19 as one of your tetanus-diphtheria vaccines if you did not receive it as an adolescent. Tetanus-diphtheria: have a booster (or Tdap) every 10 years. Varicella vaccine: receive 2 doses if you never had chickenpox or the varicella vaccine. Hepatitis B vaccine: receive 2, 3, or 4 doses, depending on your exact circumstances. Measles, mumps, and rubella (MMR) vaccine: receive 1 to 2 doses if you are not already immune to MMR. Your provider can tell you if you are immune. Ask your provider about the human papillomavirus (HPV) vaccine if: You have not received the HPV vaccine in the past You have not completed the full vaccine series (you should catch up on this shot) Ask your provider if you should receive other immunizations if you have certain health problems that increase your risk for some diseases such as pneumonia. INFECTIOUS DISEASE SCREENING Women who are sexually active should be screened for chlamydia and gonorrhea up until age 25. Women 25 years and older should be screened for chlamydia and gonorrhea if at high risk. Screening for hepatitis C: All adults ages 18 to 79 should get a one-time test for hepatitis C. people should be screened at every . Screening for human immunodeficiency virus (HIV): All people ages 15 to 65 should get a one-time test for HIV. Depending on your lifestyle and medical history, you may also need to be screened for infections such as syphilis and HIV, as well as other infections. PHYSICAL EXAM All adults should visit their provider from time to time, even if they are healthy. The purpose of these visits is to: Screen for disease Assess your risk of future medical problems Encourage a healthy lifestyle Update your vaccinations and other preventive care services Maintain a relationship with a provider in case of an illness Your height, weight, and BMI should be checked at every exam. During your exam, your provider may ask you about: Depression and anxiety Diet and exercise Alcohol and tobacco use Safety issues, such as using seat belts, smoke detectors, and intimate partner violence Your medicines and risk for interactions SKIN SELF-EXAM Your provider may check your skin for signs of skin cancer, especially if you're at high risk, such as if you: Have had skin cancer before Have close relatives with skin cancer Have a weakened immune system OTHER SCREENING Talk with your provider about colon cancer screening if you have a strong family history of colon cancer or polyps, or if you have had inflammatory bowel disease or polyps yourself. Routine bone density screening of women under 40 is not recommended.
[2024-08-30 13:19] VITALS: BP 134/76; PULSE 76; RESP 12; TEMP 36.2; O2SAT 97; BMI 39.3
== END 2024-08-30 13:34 | disposition home or self-care (01) ==
LOC: HO.HMCFM 13:02
PROVIDERS: PCP Nurse Practitioner Family; Visit Provider Nurse Practitioner Family
DX: Z00.00 Encounter for general adult medical examination without abnormal findings (principal); E66.9 Obesity, unspecified; Z78.0 Asymptomatic menopausal state; Z68.39 Body mass index [BMI] 39.0-39.9, adult; Z80.8 Family history of malignant neoplasm of other organs or systems; Z12.83 Encounter for screening for malignant neoplasm of skin; Z87.42 Personal history of other diseases of the female genital tract; N28.1 Cyst of kidney, acquired; Z76.89 Persons encountering health services in other specified circumstances; M47.816 Spondylosis without myelopathy or radiculopathy, lumbar region; M19.041 Primary osteoarthritis, right hand; M19.042 Primary osteoarthritis, left hand

== ENCOUNTER → 2024-08-30 13:02 | Outpatient (BNVA) | payer OTHER, SELFPAY | PROVIDERS: PCP Nurse Practitioner Family; Visit Provider Nurse Practitioner Family | DX: Z00.01 Encounter for general adult medical examination with abnormal findings (principal); N28.1 Cyst of kidney, acquired; M19.042 Primary osteoarthritis, left hand; M19.041 Primary osteoarthritis, right hand; M51.379 Other intervertebral disc degeneration, lumbosacral region without mention of lumbar back pain or lower extremity pain; M47.816 Spondylosis without myelopathy or radiculopathy, lumbar region; E66.9 Obesity, unspecified; Z68.39 Body mass index [BMI] 39.0-39.9, adult; Z78.0 Asymptomatic menopausal state; Z80.8 Family history of malignant neoplasm of other organs or systems; Z87.42 Personal history of other diseases of the female genital tract; Z76.89 Persons encountering health services in other specified circumstances | CPT/HCPCS: 96127 ==

== ENCOUNTER 2025-03-19 08:04 | Outpatient (REF) | payer OTHER, SELFPAY ==
[2025-03-19 09:25] LABS: Alanine Aminotransferase 28 U/L (0-31); Albumin Level 4.4 g/dL (3.5-5.0); Alkaline Phosphatase 73 U/L (39-117); Anion Gap 12 (12-20); Aspartate Amino Transferase 26 U/L (5-31); Blood Urea Nitrogen 19 mg/dL (9-16); Calcium 9.7 mg/dL (8.4-10.2); Carbon Dioxide 24 mmol/L (22-29); Chloride 110 mmol/L (96-108); Cholesterol 166 mg/dL (<200); Estimated Glomerular Filt Rate > 60; HDL Cholesterol 50 mg/dL (>40); Potassium 4.0 mmol/L (3.3-5.1); Sodium 142 mmol/L (135-145); Total Protein 7.4 g/dL (6.5-8.0); Triglycerides 77 mg/dL (<150)
[2025-03-19 09:48] LABS: Folate 9.6 ng/mL (> or = 4.0); Vitamin B12 416 pg/mL (200-900)
[2025-03-19 13:43] LABS: Microalbum/Creatinine Ratio Ur 18.4 ug/mg cr (<30)
== END 2025-03-19 08:05 | disposition home or self-care (01) ==
LOC: HO.LAB 08:04
PROVIDERS: PCP Nurse Practitioner Family; Visit Provider Nurse Practitioner Family
DX: Z00.00 Encounter for general adult medical examination without abnormal findings (principal); Z13.1 Encounter for screening for diabetes mellitus; Z13.29 Encounter for screening for other suspected endocrine disorder; Z13.6 Encounter for screening for cardiovascular disorders; Z13.21 Encounter for screening for nutritional disorder
CPT/HCPCS: 36415; 80053; 80061; 82043; 82306; 82570; 82607; 82746; 83036; 84443